=== PATIENT | female | born 1990 | race Two or more races ===

== ENCOUNTER 2017-07-09 18:42 | Emergency (ER) | payer SELFPAY ==
[~2017-07-09] VITALS: Ht 165.1 cm; Wt 65.8 kg
--- NOTE | 2017-07-09 18:45 | NUR ---
PT BIBRA TO ER BED 12 ACCOMPANIED BY PD. PER REPORT, DRUNK IN PUBLIC WAS SUPPOSED TO BE BOOKED BUT STARTED COMPLAINING THAT SHE IS SUICIDAL. PT IS AGITATE, YELLING. VERBALLY ABUSIVE TO STAFF. PLACED ON MONITOR. AWAITING MD CARUSO.
--- NOTE | 2017-07-09 19:10 | NUR ---
DR CARDONA AT BEDSIDE FOR EVAL.
--- NOTE | 2017-07-09 19:24 | NUR ---
Romain hayes in [facility] - 07/09/17 at 2225 by TRACIE LEGAL ASSISTANT AT BEDSIDE FOR ISABELAAL.
--- NOTE | 2017-07-09 19:24 | NUR ---
OFFSET PLATE MAKER AT BEDSIDE FOR BLOOD DRAW.
[2017-07-09 19:27] LABS: BASOPHILS # (AUTO) 0.1 /CMM (0.0-0.2); BASOPHILS % (AUTO) 0.8 % (0.0-2.0); EOSINOPHILS % (AUTO) 0.4 % (0.0-6.0); HEMATOCRIT 37 % (33-45); HEMOGLOBIN 12.1 g/dL (11.5-14.8); LYMPHOCYTES # (AUTO) 2.5 /CMM (0.8-4.8); LYMPHOCYTES % (AUTO) 37.2 % (20.0-44.0); MEAN CORPUSCULAR HEMOGLOBIN 27 PG (26.0-33.0); MEAN CORPUSCULAR HGB CONC 33 g/dl (31.0-36.0); MEAN CORPUSCULAR VOLUME 81 fL (82-100); MONOCYTES # (AUTO) 0.6 /CMM (0.1-1.30); MONOCYTES % (AUTO) 9.3 % (2.0-12.0); NEUTROPHILS # (AUTO) 3.4 /CMM (1.8-8.9); NEUTROPHILS % (AUTO) 52.3 % (43.0-81.0); PLATELET COUNT (AUTO) 299 /CMM (150-450); RDW COEFFICIENT OF VARIATION 15.3 (11.5-15.0); RED BLOOD CELL COUNT(AUTO) 4.55 MIL/uL (4.0-5.2); WHITE BLOOD COUNT (AUTO) 6.6 K/uL (4.3-11.0)
[2017-07-09] MEDS ORDERED: OLANZAPINE 10 MG VIAL IM ONE ×2 (19:28→19:30)
[2017-07-09 19:36] LABS: CALCIUM, SERUM 8.7 mg/dL (8.5-10.1); CARBON DIOXIDE 25 mmol/L (21-32); CHLORIDE 106 mmol/L (98-107); CREATININE 0.7 mg/dL (0.6-1.3); GLUCOSE 83 mg/dL (74-106); POTASSIUM 3.4 mmol/L (3.5-5.1); SODIUM SERUM 143 mmol/L (136-145); UREA NITROGEN, BLOOD 9 mg/dL (7-18)
[2017-07-09 19:42] LABS: ALANINE AMINOTRANSFERASE 30 U/L (12-78); ALBUMIN 3.9 g/dL (3.4-5.0); ALCOHOL, BLOOD 203 mg/dL (0-0); ALKALINE PHOSPHATASE 99 U/L (46-116); ASPARTATE AMINOTRANSFERASE 39 U/L (15-37); BILIRUBIN,DIRECT 0.1 mg/dL (0.0-0.2); BILIRUBIN,TOTAL 0.3 mg/dL (0.2-1.0); SALICYLATE 0.9 mg/dL (2.8-20.0)
[2017-07-09 19:50] LABS: APPEARANCE,URINE Clear (CLEAR); BILIRUBIN,URINE Negative (NEGATIVE); BLOOD, URINE Negative Ery/uL (NEGATIVE); COLOR,URINE Yellow (YELLOW); KETONES,URINE 15 (NEGATIVE); LEUKOCYTE ESTERASE ,URINE Negative (NEGATIVE); NITRITE, URINE Negative (NEGATIVE); PH,URINE 5.5 (5.0-8.0); PROTEIN,URINE Negative (NEGATIVE); UGLUCOSE Negative (NEGATIVE); UROBILINOGEN,URINE 0.2 EU/dL (0.2)
[2017-07-09 20:04] LABS: ACETAMINOPHEN < 1 ug/ml (10-30)
[2017-07-09 20:20] LABS: RBC,URINE 0-2 /HPF (0-2); WBC,URINE 0-2 /HPF (0-3)
[2017-07-09 20:21] LABS: BACTERIA,URINE Moderate /HPF (None Seen); SQUAMOUS EPITHELIAL CELL,UR Moderate /HPF (None Seen)
--- NOTE | 2017-07-09 20:30 | NUR ---
PT SLEEPING. ON MONITOR W/ STABLE VITALS. WILL CONT TO MONITOR.
--- NOTE | 2017-07-09 23:10 | NUR ---
PT ENDORSED TO TEXTILE BAG SEWER NURSE ALBER FOR DESI.
--- NOTE | 2017-07-09 23:14 | NUR ---
RECEIVED REPORT FROM SELAM RITCHIE
--- NOTE | 2017-07-10 00:41 | NUR ---
ART AT BEDSIDE FOR EVAL
[2017-07-10] MEDS ORDERED: IBUPROFEN 400 MG TABLET ONE (01:01)
[2017-07-10] MEDS ORDERED: IBUPROFEN 400 MG TABLET PO ONE (01:30)
--- NOTE | 2017-07-10 01:41 | NUR ---
Patient is resting comfortably in bed with eyes closed. Easily aroused. VSS
--- NOTE | 2017-07-10 04:23 | NUR ---
PT AOX3, STEADY GAIT NOTED. MD CARRILLO
[2017-07-10] MEDS ORDERED: ACETAMINOPHEN 325 MG TABLET ONE (04:42)
--- NOTE | 2017-07-10 04:47 | NUR ---
Patient discharged to home in stable condition. Written and verbal after care instructions given. Patient verbalizes understanding of instruction. ambulatory with a steady gait. instructed not to drive. pt verbalize understanding
[2017-07-10 04:49] VITALS: BP 120/66
[2017-07-10] MEDS ORDERED: ACETAMINOPHEN 325 MG TABLET PO ONE (05:00)
== END 2017-07-10 04:49 | disposition home or self-care (01) ==
LOC: ER 18:44
DX: F10.10 Alcohol abuse, uncomplicated (principal); F15.10 Other stimulant abuse, uncomplicated; E11.9 Type 2 diabetes mellitus without complications; F17.200 Nicotine dependence, unspecified, uncomplicated
CPT/HCPCS: 36415; 80048-TC; 80076-TC; 80305; 81000-TC; 85025-TC; 87086-TC; G0480; J3490; Z7610